=== PATIENT | male | born 1965 | race Caucasian/White ===

== ENCOUNTER 2016-10-31 11:38 | Emergency (ER) | payer OTHER ==
[~2016-10-31] VITALS: Ht 165.1 cm; Wt 75.0 kg
[2016-10-31] MEDS ORDERED: HYDROCODONE/ACETAMINOPHEN 5/325MG TABLET PO ONE (12:45)
[2016-10-31] MEDS ORDERED: TETANUS, DIPHTHERIA, PERTUSSIS VAC/PF 0.5ML (>7YR OLD) IM ONE (12:45)
[2016-10-31 12:48] VITALS: BP 150/91
[2016-10-31] MEDS ORDERED: LIDOCAINE HCL 1% 20ML VIAL (Pyxis) INJ MC ONE (14:00)
[2016-10-31] MEDS ORDERED: BACITRACIN ZINC OINT UDPKT TOP ONE (14:00)
[2016-10-31] MEDS ORDERED: KETOROLAC 60MG/2ML VIAL IM ONE (15:15)
== END 2016-10-31 15:22 | disposition home or self-care (01) ==
LOC: ER 12:53
DX: S61.412A Laceration without foreign body of left hand, initial encounter (principal); W45.8XXA Other foreign body or object entering through skin, initial encounter; Y93.89 Activity, other specified; Y92.89 Other specified places as the place of occurrence of the external cause; Y99.0 Civilian activity done for income or pay; Z23 Encounter for immunization
CPT/HCPCS: 12002; 73130; 90471; 90715; 99284; J3490

== ENCOUNTER 2016-11-02 08:32 | Emergency (ER) | payer OTHER ==
[~2016-11-02] VITALS: Ht 162.6 cm; Wt 75.0 kg
[2016-11-02] MEDS ORDERED: BACITRACIN ZINC OINT UDPKT TOP ONE (09:15)
[2016-11-02 09:37] VITALS: BP 127/70
== END 2016-11-02 09:39 | disposition home or self-care (01) ==
LOC: ER 08:58
DX: M79.642 Pain in left hand (principal); I10 Essential (primary) hypertension
CPT/HCPCS: 99283